=== PATIENT | male | born 1980 | race Caucasian/White ===

== ENCOUNTER 2024-11-26 19:17 | Emergency (ER) | payer OTHER ==
[~2024-11-26] VITALS: Ht 182.9 cm; Wt 99.8 kg
[~2024-11-26 19:17] MED LIST: AMOX875 PO; HYDACE5 PO; IBUP800 PO; META800 PO; NAPR500 PO; Percocet 5-3251 EACH PO
[2024-11-26 21:54] VITALS: BP 149/98
== END 2024-11-26 21:54 | disposition home or self-care (01) ==
LOC: ER 19:17
DX: S46.222A Laceration of muscle, fascia and tendon of other parts of biceps, left arm, initial encounter (principal); X58.XXXA Exposure to other specified factors, initial encounter
CPT/HCPCS: 76882; 99283-25

== ENCOUNTER 2024-12-04 12:29 | Day surgery (SDC) | payer OTHER ==
[~2024-12-04] VITALS: Ht 182.9 cm; Wt 106.5 kg
[~2024-12-04 12:29] MED LIST changes: +Bupivacaine HCl 0.25% 30 ML Injection ONE; +Dexamethasone Sod Phos 10 MG/ML 1ML VIAL ONE; +FentaNYL Citrate 50 MCG/ML 2 ML Injection ONE; +Lidocaine HCl 2% 10 ML SDA ONE; +Midazolam HCl 1MG / ML 2ML Vial ONE; +Ondansetron HCl 2 MG / ML 2ML Vial ONE
[2024-12-04] MEDS ORDERED: CeFAZolin Sodium 2,000 MG VIAL ONE (12:47)
--- NOTE | 2024-12-04 14:48 | NUR ---
12/04/24 1448 XinyazanValery PATIENT WAS A HARD IV STICK TODAY. STAFF NURSES AND SURGEONS DISCUSSED WITH PATIENT THAT FINAL DECISION WAS HIS, WE COULD CONTINUE TO TRY FOR AN IV TODAY OR WE CAN RESCHEDULE THE SURGERY AND HAVE HIM [facility]ISIT [facility] PRIOR TO ARRIVAL AT [facility]. PATIENT PREFERRED TO CONTINUE TRYING FOR AN IV. STAFF USED THE VEIN FINDER, DR MZT USED THE ULTRASOUND MACHINE, ONE START IN THE FOOT WAS ATTEMPTED WELL. FINAL COUNT IS 8 ATTEMPTS. THE FINAL SUCCESSFUL ATTEMPT WAS TO THE RIGHT UPPER ARM BY SANDY,RN. TIMEOUT FOR BLOCK: 1421 START OF BLOCK BY [address] MTZ: 1429 END OF BLOCK PROCEDURE: 1433 PT TOLERATED PROCEDURE WELL ON 3 LPM OXYGEN VIA NC. DR MTZ GAVE MEDICINE TO RELAX PATIENT PRIOR TO START OF BLOCK.
[2024-12-04] MEDS ORDERED: Ketorolac Tromethamine 30mg Vial ONE (14:58)
[2024-12-04] MEDS ORDERED: Glycopyrrolate 0.2 MG/ML 5ML VIAL ONE (14:58)
[2024-12-04] MEDS ORDERED: ePHEDrine Sulfate 50 MG/ML 1ML Injection ONE (15:02)
[2024-12-04] MEDS ORDERED: FentaNYL Citrate 50 MCG/ML 2 ML Injection ONE (15:19)
[2024-12-04 16:11] VITALS: BP 151/104
--- NOTE | 2024-12-04 16:51 | NUR ---
12/04/24 1651 Taz Ch PT DENIES PAIN AND NAUSEA AT THIS TIME. PT AGREEABLE TO D/C HOME WITH HIS BROTHER.
== END 2024-12-04 16:51 | disposition home or self-care (01) ==
LOC: ORSCSDS 12:29
PROVIDERS: Orthopaedic Surgery
PROC: 0LQ40ZZ Repair Left Upper Arm Tendon, Open Approach (ICD-10-PCS; principal; 2024-12-04 14:00)
DX: S46.212A Strain of muscle, fascia and tendon of other parts of biceps, left arm, initial encounter (principal); E66.9 Obesity, unspecified; Z68.31 Body mass index [BMI] 31.0-31.9, adult
CPT/HCPCS: C1713; J0690; J1100; J1885; J2003; J2250; J2405; J2704; J3010; J7120